=== PATIENT | female | born 1965 | race Caucasian/White ===

== ENCOUNTER 2016-09-10 14:29 | Observation (INO) | payer BC ==
--- NOTE | 2016-09-10 14:55 | ED ---
General Adult HPI - General Chief complaint: Chest Pain Stated complaint: Chest Pain Source: patient, RN notes reviewed, old records reviewed Mode of arrival: ambulatory Limitations: no limitations - History of Present Illness Initial comments: This is a 51-year-old female ER for evaluation of chest pain. Patient is anterior heavy chest visiting a left chest with shortness of breath, no recent travel history no sick contacts no fever cough or congestion, she has no high blood pressure normal cholesterol no diabetes nonsmoker but does have family history of heart disease. Chest pain started last night with diaphoresis and into today. Pain is worsened throughout the course of the day - Related Data Home Medications Medication Instructions Recorded Confirmed Ascorbic Acid [Vitamin C] 500 mg PO DAILY 09/10/16 09/10/16 Cyanocobalamin (Vitamin B-12) 1,000 mcg PO DAILY 09/10/16 09/10/16 [Vitamin B-12] Fexofenadine HCl [Annette Allergy] 180 mg PO DAILY PRN 09/10/16 09/10/16 Vitamin C/Biotin [Hair, Skin and 1 tab PO DAILY 09/10/16 09/10/16 Nails] Zinc 50 mg PO DAILY 09/10/16 09/10/16 Allergies Allergy/AdvReac Type Severity Reaction Status Date / Time Penicillins Allergy Unknown Verified 09/10/16 15:10 Review of Systems ROS Statement: Those systems with pertinent positive or pertinent negative responses have been documented in the HPI. ROS Other: All systems not noted in ROS Statement are negative. Past Medical History Past Medical History: No Reported History History of Any Multi-Drug Resistant Organisms: None Reported Past Surgical History: Cholecystectomy Past Psychological History: No Psychological Hx Reported Smoking Status: Never smoker Past Alcohol Use History: Rare Past Drug Use History: None Reported General Exam Limitations: no limitations General appearance: alert, in no apparent distress, anxious Head exam: Present: atraumatic, normocephalic, normal inspection Eye exam: Present: normal appearance, PERRL, EOMI. Absent: scleral icterus, conjunctival injection, periorbital swelling ENT exam: Present: normal exam, mucous membranes moist Neck exam: Present: normal inspection. Absent: tenderness, meningismus, lymphadenopathy Respiratory exam: Present: normal lung sounds bilaterally. Absent: respiratory distress, wheezes, rales, rhonchi, stridor Cardiovascular Exam: Present: regular rate, normal rhythm, normal heart sounds. Absent: systolic murmur, diastolic murmur, rubs, gallop, clicks GI/Abdominal exam: Present: soft, normal bowel sounds. Absent: distended, tenderness, guarding, rebound, rigid Extremities exam: Present: normal inspection, full ROM, normal capillary refill. Absent: tenderness, pedal edema, joint swelling, calf tenderness Back exam: Present: normal inspection Neurological exam: Present: alert, oriented X3, CN II-XII intact Psychiatric exam: Present: normal affect, normal mood Skin exam: Present: warm, dry, intact, normal color. Absent: rash Course Vital Signs 09/10/16 09/10/16 14:31 16:31 Temperature 98.8 F Pulse Rate 78 76 Respiratory 20 14 Rate Blood Pressure 124/77 120/69 O2 Sat by Pulse 100 96 Oximetry - Reevaluation(s) Reevaluation #1: 09/10/16 17:17 Patient remains with chest pain Reevaluation #2: 09/10/16 17:17 Still with patient regarding chest pain greater than 15 minutes, would like observation EKG Findings - EKG Comments: EKG Findings:: EKG shows normal sinus rhythm rate of 69, NV 144, QRS 72, QTC 426 Medical Decision Making - Medical Decision Making 51 female here for evaluation stressing. Patient is having Anterior having chest pains, no prior history of similar symptoms, family does have history of heart disease, patient is otherwise nonsmoker with low cardiac risk, patient did have symptoms that began left-sided been episodic shortness of breath, patient EKG and troponin are negative but will be admitted for cardiac observation secondary to character of symptoms and family history. Patient be admitted for cardiac observation and anticoagulation - Lab Data Result diagrams: 09/10/16 15:14 09/10/16 15:14 Lab Results 09/10/16 09/10/16 09/10/16 Range/Units 15:14 15:14 15:14 WBC 6.6 (3.8-10.6) k/uL RBC 4.93 (3.80-5.40) m/uL Hgb 14.2 (11.4-16.0) gm/dL Hct 43.8 (34.0-46.0) % MCV 88.8 (80.0-100.0) fL MCH 28.9 (25.0-35.0) pg MCHC 32.5 (31.0-37.0) g/dL RDW 12.7 (11.5-15.5) % Plt Count 285 (150-450) k/uL Neutrophils % 55 % Lymphocytes % 36 % Monocytes % 5 % Eosinophils % 1 % Basophils % 1 % Neutrophils # 3.6 (1.3-7.7) k/uL Lymphocytes # 2.3 (1.0-4.8) k/uL Monocytes # 0.4 (0-1.0) k/uL Eosinophils # 0.1 (0-0.7) k/uL Basophils # 0.0 (0-0.2) k/uL PT (9.0-12.0) sec INR (<1.1) APTT (22.0-30.0) sec Sodium 143 (137-145) mmol/L Potassium 4.2 (3.5-5.1) mmol/L Chloride 104 (98-107) mmol/L Carbon Dioxide 27 (22-30) mmol/L Anion Gap 12 mmol/L BUN 11 (7-17) mg/dL Creatinine 0.84 (0.52-1.04) mg/dL Est GFR (MDRD) Af Amer >60 (>60 ml/min/1.73 sqM) Est GFR (MDRD) Non-Af >60 (>60 ml/min/1.73 sqM) Glucose 96 (74-99) mg/dL Calcium 10.2 (8.4-10.2) mg/dL Magnesium 1.9 (1.6-2.3) mg/dL Total Bilirubin 0.7 (0.2-1.3) mg/dL AST 52 H (14-36) U/L ALT 47 (9-52) U/L Alkaline Phosphatase 51 (38-126) U/L Total Creatine Kinase 61 (30-135) U/L CK-MB (CK-2) 0.7 (0.0-2.4) ng/mL CK-MB (CK-2) Rel Index 1.1 Troponin I <0.012 (0.000-0.034) ng/mL NT-Pro-B Natriuret Pep pg/mL Total Protein 7.9 (6.3-8.2) g/dL Albumin 4.7 (3.5-5.0) g/dL Lipase 160 (23-300) U/L 09/10/16 09/10/16 Range/Units 15:14 15:14 WBC (3.8-10.6) k/uL RBC (3.80-5.40) m/uL Hgb (11.4-16.0) gm/dL Hct (34.0-46.0) % MCV (80.0-100.0) fL MCH (25.0-35.0) pg MCHC (31.0-37.0) g/dL RDW (11.5-15.5) % Plt Count (150-450) k/uL Neutrophils % % Lymphocytes % % Monocytes % % Eosinophils % % Basophils % % Neutrophils # (1.3-7.7) k/uL Lymphocytes # (1.0-4.8) k/uL Monocytes # (0-1.0) k/uL Eosinophils # (0-0.7) k/uL Basophils # (0-0.2) k/uL PT 10.7 (9.0-12.0) sec INR 1.1 (<1.1) APTT 23.5 (22.0-30.0) sec Sodium (137-145) mmol/L Potassium (3.5-5.1) mmol/L Chloride (98-107) mmol/L Carbon Dioxide (22-30) mmol/L Anion Gap mmol/L BUN (7-17) mg/dL Creatinine (0.52-1.04) mg/dL Est GFR (MDRD) Af Amer (>60 ml/min/1.73 sqM) Est GFR (MDRD) Non-Af (>60 ml/min/1.73 sqM) Glucose (74-99) mg/dL Calcium (8.4-10.2) mg/dL Magnesium (1.6-2.3) mg/dL Total Bilirubin (0.2-1.3) mg/dL AST (14-36) U/L ALT (9-52) U/L Alkaline Phosphatase (38-126) U/L Total Creatine Kinase (30-135) U/L CK-MB (CK-2) (0.0-2.4) ng/mL CK-MB (CK-2) Rel Index Troponin I (0.000-0.034) ng/mL NT-Pro-B Natriuret Pep 44 pg/mL Total Protein (6.3-8.2) g/dL Albumin (3.5-5.0) g/dL Lipase (23-300) U/L - Radiology Data Radiology results: report reviewed (Chest x-ray negative for acute disease), image reviewed Critical Care Time Critical Care Time: Yes Total Critical Care Time: 31 Disposition Clinical Impression: Chest pain Disposition: [facility] Condition: Undetermined
[2016-09-10 15:23] LABS: Basophils % (A) 1 %; CH 29.8; CHCM 33.7; Eosinophils # (A) 0.1 k/uL (0-0.7); Eosinophils % (A) 1 %; HCT 43.8 % (34.0-46.0); HDW 2.46; HGB 14.2 gm/dL (11.4-16.0); Luc # (Auto) 0.18; Luc % (Auto) 3; Lymphocytes # (A) 2.3 k/uL (1.0-4.8); Lymphocytes % (A) 36 %; MCH 28.9 pg (25.0-35.0); MCHC 32.5 g/dL (31.0-37.0); MCV 88.8 fL (80.0-100.0); Mean Platelet Volume 6.6; Monocytes # (A) 0.4 k/uL (0-1.0); Monocytes % (A) 5 %; Neutrophils # (A) 3.6 k/uL (1.3-7.7); Neutrophils % (A) 55 %; RBC 4.93 m/uL (3.80-5.40); RDW 12.7 % (11.5-15.5); WBC 6.6 k/uL (3.8-10.6); WBC (Perox) 6.56
[2016-09-10 15:30] LABS: INR 1.1 (<1.1); Partial Thromboplastin Time 23.5 sec (22.0-30.0); Prothrombin Time 10.7 sec (9.0-12.0)
[2016-09-10 15:32] LABS: ALT 47 U/L (9-52); AST 52 U/L (14-36); Alkaline Phosphatase 51 U/L (38-126); Anion Gap 12 mmol/L; Blood Urea Nitrogen 11 mg/dL (7-17); Calcium 10.2 mg/dL (8.4-10.2); Carbon Dioxide 27 mmol/L (22-30); Chloride 104 mmol/L (98-107); Glucose 96 mg/dL (74-99); Magnesium 1.9 mg/dL (1.6-2.3); Non-African American GFR(MDRD) >60 (>60 ml/min/1.73 sqM); Potassium 4.2 mmol/L (3.5-5.1); Sodium 143 mmol/L (137-145); Total Bilirubin 0.7 mg/dL (0.2-1.3); Total Protein 7.9 g/dL (6.3-8.2)
--- NOTE | 2016-09-10 15:34 | XR ---
EXAMINATION TYPE: XR chest 2V DATE OF EXAM: 09/10/2016 3:30 PM COMPARISON: NONE INDICATION: Chest pain TECHNIQUE: Single frontal view of the chest is obtained. FINDINGS: The heart size is normal. The pulmonary vasculature is normal. The lungs are clear. IMPRESSION: 1. No acute pulmonary process.
[2016-09-10 15:35] LABS: Creatine Kinase 61 U/L (30-135)
[2016-09-10 15:48] LABS: Creatine Kinase MB 0.7 ng/mL (0.0-2.4); Troponin I <0.012 ng/mL (0.000-0.034)
[2016-09-10] MEDS ORDERED: NITROGLYCERIN SL TABS 0.4 MG TAB SUBLINGUAL PRN (16:48)
[2016-09-10] MEDS ORDERED: HEPARIN SODIUM,PORCINE 5,000 UNIT/ML 1 ML VIAL IV PRN (16:48)
[2016-09-10] MEDS ORDERED: ASPIRIN 81 MG CHEW PO STA (16:48)
[2016-09-10] MEDS ORDERED: HEPARIN SODIUM,PORCINE 5,000 UNIT/ML 1 ML VIAL IV ONE (16:48)
[2016-09-10] MEDS ORDERED: HEPARIN SODIUM,PORCINE/D5W PMX 25,000 UNIT in DEXTROSE/WATER 1 500ML.BAG IV SCH (17:00)
[2016-09-10] MEDS ORDERED: SODIUM CHLORIDE 0.9% 1,000 ML IV SCH (17:00)
[2016-09-10] MEDS ORDERED: ACETAMINOPHEN TAB 325 MG TAB PO PRN (19:18)
[2016-09-10 21:43] LABS: Creatine Kinase 51 U/L (30-135)
[2016-09-10 21:57] LABS: Creatine Kinase MB 0.6 ng/mL (0.0-2.4); Troponin I <0.012 ng/mL (0.000-0.034)
--- NOTE | 2016-09-10 21:59 | HP ---
DATE OF ADMISSION: 09/10/2016 CHIEF COMPLAINT: Chest pain for 2 days. HISTORY OF PRESENT ILLNESS: This is the first admission for this 51 -year-old G2, P2, A0 white female. She started to having problems with diaphoresis and a little bit of nausea yesterday. She had no shortness of breath. She had no chest pain. Later on, last night and this morning she started to develop chest pain in the left anterior chest area which radiated into the shoulder, interscapular area and into the left arm. She has never had any heart disease and she has had no murmurs, rheumatic fever, hypertension, etc. Enzymes and EKG were normal in the emergency room. REVIEW OF SYSTEMS: She has had no neurologic problems, lung disease, fever, chills, cough, hemoptysis, murmurs, rheumatic fever, abdominal pain, indigestion, nausea, vomiting, hematemesis, melena, hematochezia, colitis, diverticulosis, diverticulitis, hemorrhage, jaundice, hepatitis, cirrhosis, hematuria, frequency, urgency, diabetes, etc. Past medical history, family history, and personal and social histories reveal she takes no medication. SHE IS ALLERGIC TO PENICILLIN. PAST SURGICAL HISTORY: She has had cholecystectomy. She does not smoke. She drinks alcohol rarely. She has a negative family history as well. PHYSICAL EXAMINATION: Blood pressure 118/78 with a pulse 72, respirations 19, and she is afebrile. GENERAL: She appeared to well-developed, well-nourished in no acute distress. SKIN: Skin color is normal. Skin is warm and dry. Lymph nodes are not enlarged. Head, ears, eyes, nose, mouth, and throat were normal. NECK: Neck veins not distended. Thyroid is not enlarged. Chest is clear. CARDIAC: Exam is normal with no murmurs or extra sounds. ABDOMEN: Soft, nontender without visceromegaly or masses. EXTREMITIES: Normal. NEUROLOGICAL: She is intact. She is tender in the left anterior chest wall and costochondral cartilage area particularly in the left. IMPRESSION: 1. Chest pain, atypical. 2. Costochondritis. PLAN: 1. Bedrest. 2. IV fluids. 3. Serial EKGs and enzymes. 4. Probably home with a suggestion of a follow-up stress study.
[2016-09-10] MEDS: IBUPROFEN 800 MG TAB PO PRN (22:34)
[2016-09-11 03:24] LABS: Mean Platelet Volume 7.5
[2016-09-11 03:35] LABS: Cholesterol 141 mg/dL (<200); HDL Cholesterol 67 mg/dL (40-60); Triglycerides 80 mg/dL (<150)
[2016-09-11 03:53] LABS: Creatine Kinase 43 U/L (30-135)
[2016-09-11 04:06] LABS: Creatine Kinase MB 0.5 ng/mL (0.0-2.4); Troponin I <0.012 ng/mL (0.000-0.034)
[2016-09-11 08:18] VITALS: BP 120/56; PULSE 63; RESP 14; TEMP 98.3
[2016-09-11] MEDS: IBUPROFEN 800 MG TAB PO PRN (08:53)
[2016-09-11] MEDS ORDERED: ASPIRIN 325 MG TAB PO SCH (09:00)
--- NOTE | 2016-09-11 09:46 | P.DS ---
Providers Date of admission: 09/10/16 16:48 Expected date of discharge: 09/11/16 Attending physician: Alec Khan Primary care physician: Stated None Hospital Course: 51-year-old female presented on the day of admission to the emergency room to be evaluated for chief complaint of chest pain. Patient stated the chest pain occurred to the anterior chest wall radiating into the left side of the chest shortness of breath. Patient denies any recent travel history no recent sick contacts denied any fever chills. Patient has no other significant past medical history. Chest x-ray in the emergency room was negative for an acute process. D-dimer was not elevated. Cardiac enzymes 3 sets were negative. The BNP was 44. Patient's symptoms improved patient was felt to be hemodynamically stable appropriate proceed with a discharge Impression discharge diagnosis Present on admission chest pain atypical negative cardiac enzymes suspect due to muscle skeletal Lifelong nonsmoker Seasonal ALLERGIES The above dictated assessment and findings were discussed with Dr. Khan. Impression and the plan of care have been dictated as directed. Nica Muñoz nurse practitioner acting as a scribe for Dr. Khan Patient Condition at Discharge: Undetermined Plan - Discharge Summary New Discharge Prescriptions: Ibuprofen [Motrin] 200 mg PO Q6HR PRN #30 tab PRN Reason: Mild To Moderate Pain Discharge Medication List Ascorbic Acid [Vitamin C] 500 mg PO DAILY 09/10/16 [History] Cyanocobalamin (Vitamin B-12) [Vitamin B-12] 1,000 mcg PO DAILY 09/10/16 [ History] Fexofenadine HCl [Annette Allergy] 180 mg PO DAILY PRN 09/10/16 [History] Vitamin C/Biotin [Hair, Skin and Nails] 1 tab PO DAILY 09/10/16 [History] Zinc 50 mg PO DAILY 09/10/16 [History] Ibuprofen [Motrin] 200 mg PO Q6HR PRN #30 tab 09/11/16 [Rx] Follow up Appointment(s)/Referral(s): None,Stated [Primary Care Provider] - 1-2 days Alec Khan MD [STAFF PHYSICIAN] - 09/14/16 Patient Instructions/Handouts: Chest Pain (ED) Discharge Disposition: HOME SELF-CARE
--- NOTE | 2016-09-11 14:45 | PN ---
CHIEF COMPLAINT: Chest pain. HISTORY OF PRESENT ILLNESS: This lady has had discomfort during the night but it sounds like it is costochondritis or pleurisy. It has been constant and she still has some discomfort and tenderness in the left anterior chest. It hurts when she takes a deep breath. PHYSICAL EXAM: Chest is clear. Cardiac exam is normal. ABDOMEN: Soft, nontender. IMPRESSION: 1. Atypical chest pain. 2. Costochondritis. 3. Possible pleurisy. PLAN: Probably home today and this will be arranged by the nurse practitioner and she will follow up with her own physician. Stress study might be of some benefit as an outpatient.
== END 2016-09-11 10:21 | disposition home or self-care (01) ==
LOC: EC 14:29 → 3OBS 16:48
PROVIDERS: ADMIT Family Medicine; ATTEND Family Medicine
DX: R07.89 Other chest pain (principal); M94.0 Chondrocostal junction syndrome [Tietze]; R06.02 Shortness of breath; R61 Generalized hyperhidrosis; J30.2 Other seasonal allergic rhinitis; Z79.899 Other long term (current) drug therapy; Z88.0 Allergy status to penicillin; Z82.49 Family history of ischemic heart disease and other diseases of the circulatory system
CPT/HCPCS: 36415; 85379; 83880; 80061; 80053; 82550 ×2; 82553 ×2; 83690; 83735; 84484 ×2; 85025; 85049; 85610; 85730; 71020; 99291; 96365; 96376; G0378 ×2; J1644 ×2; 93005